=== PATIENT | male | born 1985 | race Two or more races ===

== ENCOUNTER 2016-08-04 04:04 | Emergency (ER) | payer OTHER ==
[~2016-08-04] VITALS: Ht 172.7 cm; Wt 81.6 kg
[2016-08-04 04:06] VITALS: BP 129/92
== END 2016-08-04 04:16 ==
LOC: ER 04:06
DX: F10.129 Alcohol abuse with intoxication, unspecified (principal); R79.89 Other specified abnormal findings of blood chemistry
CPT/HCPCS: 82962-TC; A4606; Z7610